=== PATIENT | female | born 2000 | race Caucasian/White ===

== ENCOUNTER 2021-06-01 08:10 | Emergency (ER) | payer BC ==
[~2021-06-01] VITALS: Ht 167.6 cm; Wt 56.7 kg
--- NOTE | 2021-06-01 08:22 | NUR ---
PT CAME IN C/O CHEST DISCOMFORT AND DIFF. BREATHING, + COVID ON 05/29/21. AOX4, NO SOB NOTED AT THIS TIME, NO SIGN OF ANY ACUTE DISTRESS NOTED. NO C/O PAIN AT THIS TIME. WILL CONTINUE WITH PLAN OF CARE
--- NOTE | 2021-06-01 09:02 | NUR ---
RT CALLED FOR BREATHING TREATMENT
[2021-06-01] MEDS ORDERED: ALBUTEROL FS 2.5 MG/3 ML VIAL.NEB ONE (09:14)
[2021-06-01] MEDS ORDERED: IPRATROPIUM NEB FS 0.5 MG/2.5 ML AMPUL.NEB ONE (09:14)
[2021-06-01] MEDS ORDERED: DEXA4TAB68 PO (09:18)
[2021-06-01] MEDS: ALBUTEROL FS 2.5 MG/3 ML VIAL.NEB NEB ONE (09:25)
[2021-06-01] MEDS: IPRATROPIUM NEB FS 0.5 MG/2.5 ML AMPUL.NEB NEB ONE (09:25)
[2021-06-01] MEDS ORDERED: DEXAMETHASONE 4 MG TABLET ONE (09:27)
[2021-06-01] MEDS: DEXAMETHASONE 1 MG TABLET PO ONE (09:30)
[2021-06-01 09:57] VITALS: BP 120/76
--- NOTE | 2021-06-01 09:57 | NUR ---
Patient discharged to home in stable condition. Written and verbal after care instructions given. Patient verbalizes understanding of instruction.
== END 2021-06-01 09:58 | disposition home or self-care (01) ==
LOC: ER 08:15
DX: U07.1 COVID-19 (principal); R06.02 Shortness of breath; J45.909 Unspecified asthma, uncomplicated; Z60.2 Problems related to living alone
CPT/HCPCS: 71045; 93005; 94640 ×2; 99284; J8540

== ENCOUNTER 2021-06-24 20:54 | Emergency (ER) | payer BC ==
[~2021-06-24] VITALS: Ht 167.6 cm; Wt 56.7 kg
[~2021-06-24 20:54] MED LIST: DEXA4TAB68 PO
--- NOTE | 2021-06-24 21:03 | NUR ---
CALLED NAME IN WAITING ROOM, NO ANSWER.
[2021-06-24 21:08] VITALS: BP 98/68
[2021-06-24] MEDS ORDERED: IBUP-1955 PO (21:55)
== END 2021-06-24 23:28 | disposition home or self-care (01) ==
LOC: ER 20:58
DX: M25.511 Pain in right shoulder (principal); J45.909 Unspecified asthma, uncomplicated; Z60.2 Problems related to living alone
CPT/HCPCS: 73030-TC